=== PATIENT | male | born 1975 | race American Indian/Alaskan Native ===

== ENCOUNTER 2016-05-09 15:43 | Emergency (ER) | payer OTHER ==
[2016-05-09] MEDS ORDERED: TORADOL IM ONE (18:59)
[2016-05-09] MEDS ORDERED: VALIUM IM ONE (18:59)
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
[2016-05-09] MEDS ORDERED: MOTRIN PO ONE (19:43)
[2016-05-09] MEDS ORDERED: FLEXERIL PO ONE (19:43)
[2016-05-09 20:34] VITALS: BP 131/80
== END 2016-05-09 20:45 | disposition home or self-care (01) ==
LOC: ED 15:43
DX: S16.1XXA Strain of muscle, fascia and tendon at neck level, initial encounter (principal); M62.830 Muscle spasm of back; V49.9XXA Car occupant (driver) (passenger) injured in unspecified traffic accident, initial encounter; Y93.89 Activity, other specified; Y99.9 Unspecified external cause status; Y92.410 Unspecified street and highway as the place of occurrence of the external cause
CPT/HCPCS: 99282; J1885; J3360